=== PATIENT | male | born 1985 | race Caucasian/White ===

== ENCOUNTER 2018-10-04 07:54 | Emergency (ER) | payer MEDICAID ==
[~2018-10-04] VITALS: Ht 182.9 cm; Wt 68.4 kg
[~2018-10-04 07:54] MED LIST: OMEP10CA4 PO; UMEC1DIS INH
[2018-10-04 08:21] VITALS: BP 109/72
--- NOTE | 2018-10-04 08:44 | NUR ---
PT AMBULATORY TO ROOM 5 W/ C/O LICE THAT STARTED 1 MONTH AGO. PT STATES HE TREATED LICE BY THROWING AWAY HIS CLOTHES AND BATHING. STATES HE SCRATCHED AT POSS BUG BITES TO BILAT SHOULDERS W/ DIRTY FINGERS AND NOW STATES IT'S INFECTED. "SOME DAYS IT GETS BETTER SOME DAYS IT GETS WORSE". PT STATES HE HAS BEEN TRYING TO TAKE CARE OF IT HIMSELF BUT FEELS HE NEEDS MEDICAL ATTENTION NOW. PT RESTING ON GURLEXI. NADN. WARM BLANKET PROVIDED.
== END 2018-10-04 09:34 | disposition home or self-care (01) ==
LOC: ED 09:23
DX: L03.221 Cellulitis of neck (principal); L03.113 Cellulitis of right upper limb; L03.313 Cellulitis of chest wall; F17.210 Nicotine dependence, cigarettes, uncomplicated; Z72.9 Problem related to lifestyle, unspecified; Z75.9 Unspecified problem related to medical facilities and other health care; Z91.14 Patient's other noncompliance with medication regimen
CPT/HCPCS: 99283

== ENCOUNTER 2018-11-07 17:22 | Emergency (ER) | payer MEDICAID ==
[~2018-11-07] VITALS: Ht 182.9 cm; Wt 70.0 kg
--- NOTE | 2018-11-07 17:44 | NUR ---
Pt BIB EMS from [facility] for sz. Pt had 3x witnessed sz today and one several days ago. Pt states has hx of similar used to take dilantin 5+ years ago. Pt states he has been drinking a lot recently and has not had anything to drink today. Pt alert and oriented at this time. No oral trauma.
[2018-11-07 18:16] LABS: BASOPHILS # (AUTO) 0.02 x10^3/uL (0-0.1); BASOPHILS % (AUTO) 0 % (0-1); EOSINOPHILS # (AUTO) 0.01 x10^3/uL (0-0.4); EOSINOPHILS % (AUTO) 0 % (1-7); LYMPHOCYTES % (AUTO) 7 % (22-44); MD NO; MEAN CORPUSCULAR HEMOGLOBIN 34.3 pg (27.5-34.5); MEAN CORPUSCULAR HGB CONC 34.6 g/dL (33.2-36.2); MEAN CORPUSCULAR VOLUME 99.1 fL (81-97); MEAN PLATELET VOLUME 7.4 fL (7.4-10.4); MONOCYTES # (AUTO) 0.54 x10^3/uL (0.2-0.8); MONOCYTES % (AUTO) 8 % (2-9); NEUTROPHILS % (AUTO) 85 % (42-75); PLATELET COUNT 119 x10^3/uL (130-400); RED BLOOD COUNT 3.89 x10^6/uL (4.38-5.82); RED CELL DISTRIBUTION WIDTH 15.2 % (9.4-14.8)
[2018-11-07 18:22] LABS: ALANINE AMINOTRANSFERASE 156 U/L (12-78); ALBUMIN 3.7 g/dL (3.4-5.0); ANION GAP 7 mmol/L (5-15); CALCIUM 8.6 mg/dL (8.5-10.1); CHLORIDE 99 mmol/L (98-107)
[2018-11-07 18:25] LABS: ALKALINE PHOSPHATASE 98 U/L (45-117); BILIRUBIN,TOTAL 0.7 mg/dL (0.2-1.0); TOTAL PROTEIN 8.6 g/dL (6.4-8.2)
[2018-11-07 19:01] LABS: AMPHETAMINE SCREEN, URINE Negative (Negative); BARBITURATE SCREEN, URINE Negative (Negative); BENZODIAZEPINE SCREEN, URINE Negative (Negative); CANNABINOID SCREEN, URINE Positive (Negative); COCAINE SCREEN, URINE Negative (Negative); METHADONE SCREEN, URINE Negative (Negative); OPIATE SCREEN, URINE Negative (Negative)
[2018-11-07] MEDS ORDERED: LORazepam 1MG TABLET ONE (19:27)
[2018-11-07 19:29] VITALS: BP 130/87
[2018-11-07] MEDS ORDERED: LORazepam 1MG TABLET PO ONE (19:30)
== END 2018-11-07 19:46 | disposition home or self-care (01) ==
LOC: ED 19:30
DX: F10.239 Alcohol dependence with withdrawal, unspecified (principal); R56.9 Unspecified convulsions
CPT/HCPCS: 36415; 80053; 80307; 85025; 93005; 99284

== ENCOUNTER 2019-06-22 10:25 | Emergency (ER) | payer MEDICAID ==
[~2019-06-22] VITALS: Ht 182.9 cm; Wt 63.9 kg
[~2019-06-22 10:25] MED LIST changes: -OMEP10CA4 PO; +OMEP10CA5 PO
--- NOTE | 2019-06-22 11:11 | NUR ---
PT REPORTS HAVING A SEIZURE TODAY, WITNESSED BY SIG OTHER LASTING 40 SEC. PT DID NOT SUSTAIN INJURY OR LOOSE BOWEL/BLADDER CONTROL. PT WITH HX ETOH ABUSE ERMD IN TO EVAL PT, ORDERS RECIEVED. PLAN TO OBTAIN LABS AND D/C HOME ON LIBRIUM
[2019-06-22] MEDS ORDERED: LORazepam 1MG TABLET ONE (11:14)
[2019-06-22] MEDS ORDERED: THIAMINE 100MG TABLET PO ONE (11:30)
[2019-06-22] MEDS ORDERED: LORazepam 1MG TABLET PO ONE (11:30)
[2019-06-22 11:53] LABS: BASOPHILS # (AUTO) 0.05 x10^3/uL (0-0.1); BASOPHILS % (AUTO) 1 % (0-1); EOSINOPHILS # (AUTO) 0.04 x10^3/uL (0-0.4); EOSINOPHILS % (AUTO) 1 % (1-7); LYMPHOCYTES # (AUTO) 0.79 x10^3/uL (1-3.4); LYMPHOCYTES % (AUTO) 16 % (22-44); MD NO; MEAN CORPUSCULAR HEMOGLOBIN 34.5 pg (27.5-34.5); MEAN CORPUSCULAR HGB CONC 33.7 g/dL (33.2-36.2); MEAN CORPUSCULAR VOLUME 102.1 fL (81-97); MEAN PLATELET VOLUME 7.1 fL (7.4-10.4); MONOCYTES % (AUTO) 12 % (2-9); NEUTROPHILS # (AUTO) 3.59 x10^3/uL (1.8-6.8); NEUTROPHILS % (AUTO) 71 % (42-75); PLATELET COUNT 132 x10^3/uL (130-400); RED CELL DISTRIBUTION WIDTH 16.9 % (9.4-14.8)
[2019-06-22 12:04] LABS: ANION GAP 6 mmol/L (5-15); CALCIUM 8.9 mg/dL (8.5-10.1); CHLORIDE 97 mmol/L (98-107); CREATININE 0.61 mg/dL (0.7-1.3)
[2019-06-22 12:05] LABS: ALANINE AMINOTRANSFERASE 143 U/L (12-78); ALBUMIN 3.6 g/dL (3.4-5.0)
[2019-06-22 12:12] LABS: ALKALINE PHOSPHATASE 147 U/L (45-117); BILIRUBIN,TOTAL 0.7 mg/dL (0.2-1.0); TOTAL PROTEIN 8.4 g/dL (6.4-8.2)
[2019-06-22 12:20] VITALS: BP 134/72
--- NOTE | 2019-06-22 12:20 | NUR ---
LAB RESULTS BACK, PT PLACED FOR RECHECK
== END 2019-06-22 12:47 | disposition home or self-care (01) ==
LOC: ED 12:35
DX: R56.9 Unspecified convulsions (principal); F10.239 Alcohol dependence with withdrawal, unspecified; Y90.0 Blood alcohol level of less than 20 mg/100 ml; F17.200 Nicotine dependence, unspecified, uncomplicated
CPT/HCPCS: 36415; 80053; 80307; 85025; 93005; 99284

== ENCOUNTER 2019-09-23 10:47 | Emergency (ER) | payer MEDICAID ==
[~2019-09-23] VITALS: Ht 182.9 cm; Wt 70.0 kg
--- NOTE | 2019-09-23 10:52 | NUR ---
BIB EMS FOR FALL AND ETOH. SMALL LACERATION TO BACK OF HEAD. SAADIA LOC.
--- NOTE | 2019-09-23 11:48 | NUR ---
PT TO CT
[2019-09-23] MEDS ORDERED: LIDOCAINE-MPF 1%, 5ML ONE (13:34)
[2019-09-23] MEDS ORDERED: ACETAMINOPHEN 500 MG TABLET ONE (13:34)
[2019-09-23] MEDS ORDERED: OXYcodone IR 5MG TABLET PO STA (13:45)
[2019-09-23] MEDS ORDERED: OXYcodone IR 5MG TABLET ONE (13:50)
--- NOTE | 2019-09-23 13:53 | NUR ---
WOUND CLEANED W NS. STAPLED BY PROVIDER. PT TOLERATED PROCEDURE. MEDICATED PER ORDERS. WILL DC SOON .
[2019-09-23 14:17] VITALS: BP 123/78
--- NOTE | 2019-09-23 14:19 | NUR ---
DPatient/Caregiver given discharge instructions and they have confirmed that they understand the instructions. Patient ambulatory with steady gait.
== END 2019-09-23 14:21 | disposition home or self-care (01) ==
LOC: ED 14:15
DX: S01.01XA Laceration without foreign body of scalp, initial encounter (principal); M54.2 Cervicalgia; Y08.89XA Assault by other specified means, initial encounter; Y93.89 Activity, other specified; Y92.488 Other paved roadways as the place of occurrence of the external cause; Y99.8 Other external cause status
CPT/HCPCS: 12031; 70450; 72125; 99285

== ENCOUNTER 2019-09-28 15:23 | Emergency (ER) | payer MEDICAID ==
[~2019-09-28] VITALS: Ht 182.9 cm; Wt 67.6 kg
[2019-09-28 15:51] VITALS: BP 128/85
--- NOTE | 2019-09-28 15:56 | NUR ---
ABISAI REMOVED IN TRAIGE.
== END 2019-09-28 15:59 | disposition home or self-care (01) ==
LOC: ED 15:53
DX: S01.91XD Laceration without foreign body of unspecified part of head, subsequent encounter (principal); X58.XXXD Exposure to other specified factors, subsequent encounter; Z48.02 Encounter for removal of sutures
CPT/HCPCS: 99281

== ENCOUNTER 2020-01-05 09:40 | Emergency (ER) | payer MEDICAID ==
[~2020-01-05] VITALS: Ht 182.9 cm; Wt 70.0 kg
--- NOTE | 2020-01-05 10:19 | NUR ---
pt mental status improving. disoriented to date. answers questions approp. full sentences. pupils R 5 mm, L 4 mm, constrict to light. tracks. OLSON 5/5 strength. denies dizziness. lg hematoma R side. plan for ct. explained npo status for now. denies neck/back pain. collar in place by ems. lungs ctab. sts was previously on sz meds. drinks "a lot" of beer qday depending on money. seizure precs in place. call gonzalez in reach. tyree zabala was in for eval. pt calm, cooperative, unkempt. as
[2020-01-05 10:30] LABS: ALBUMIN 4.1 g/dL (3.4-5.0); ANION GAP 11 mmol/L (5-15); CALCIUM 8.6 mg/dL (8.5-10.1); CHLORIDE 95 mmol/L (98-107)
[2020-01-05] MEDS ORDERED: LORazepam 2 MG/ML, 1ML ONE ×2 (10:36→11:48)
[2020-01-05] MEDS: LORazepam 2 MG/ML, 1ML IVPush PRN ×3 (10:39→11:58)
[2020-01-05 10:45] LABS: ALANINE AMINOTRANSFERASE 184 U/L (12-78); ALKALINE PHOSPHATASE 90 U/L (45-117); BASOPHILS # (AUTO) 0.01 x10^3/uL (0-0.1); BASOPHILS % (AUTO) 0 % (0-1); CREATININE 0.74 mg/dL (0.7-1.3); EOSINOPHILS # (AUTO) 0.01 x10^3/uL (0-0.4); EOSINOPHILS % (AUTO) 0 % (1-7); LYMPHOCYTES # (AUTO) 0.24 x10^3/uL (1-3.4); LYMPHOCYTES % (AUTO) 4 % (22-44); MD SCAN; MEAN CORPUSCULAR HGB CONC 34.1 g/dL (33.2-36.2); MEAN CORPUSCULAR VOLUME 102.6 fL (81-97); MEAN PLATELET VOLUME 7.3 fL (7.4-10.4); MONOCYTES # (AUTO) 0.28 x10^3/uL (0.2-0.8); MONOCYTES % (AUTO) 5 % (2-9); NEUTROPHILS # (AUTO) 4.98 x10^3/uL (1.8-6.8); NEUTROPHILS % (AUTO) 90 % (42-75); PLATELET COUNT 95 x10^3/uL (130-400); RED BLOOD COUNT 4.12 x10^6/uL (4.38-5.82); RED CELL DISTRIBUTION WIDTH 16.2 % (9.4-14.8); TOTAL PROTEIN 8.2 g/dL (6.4-8.2)
--- NOTE | 2020-01-05 11:11 | NUR ---
back from ct. ativan prior to ct. pt got up, voided on bed, asking for water. helped back to bed. calm now. awaiting ct. as
--- NOTE | 2020-01-05 11:26 | NUR ---
LEFT ANTEROLATERAL TEMPORAL LOBE HEMORRHAGIC CONTUSION 1.5 CM IN DIAMETER CONSISTENT WITH A CONTRECOUP INJURY. NO INTRACRANIAL MASS EFFECT. RIGHT POSTERIOR SCALP HEMATOMA. NO SKULL FRACTURE. MILD CHRONIC MAXILLARY SINUSITIS.
--- NOTE | 2020-01-05 12:06 | NUR ---
additional ativan. water per pa. c collar removed per pa. neuros intact. no lac, just scalp abrasion. as
[2020-01-05] MEDS ORDERED: CHLORDIAZEPOXIDE 25 MG CAPSULE PO ONE (12:30)
[2020-01-05] MEDS ORDERED: CHLORDIAZEPOXIDE 25 MG CAPSULE ONE (12:42)
[2020-01-05 12:53] VITALS: BP 138/90
== END 2020-01-05 13:16 | disposition home or self-care (01) ==
LOC: ED 12:29
DX: S00.03XA Contusion of scalp, initial encounter (principal); S09.90XA Unspecified injury of head, initial encounter; R56.9 Unspecified convulsions; M54.2 Cervicalgia; W18.00XA Striking against unspecified object with subsequent fall, initial encounter; Y93.89 Activity, other specified; Y92.89 Other specified places as the place of occurrence of the external cause; Y99.8 Other external cause status
CPT/HCPCS: 36415; 70450; 72125; 80053; 80307; 85025; 96374; 96376; 99285; J2060

== ENCOUNTER 2020-01-09 13:20 | Inpatient (IN) | payer MEDICAID ==
[~2020-01-09] VITALS: Ht 182.9 cm; Wt 66.9 kg
--- NOTE | 2020-01-09 14:00 | NUR ---
ASSUMED CARE OF PT AT THIS TIME. PT BIB [facility] DEPUTIES FOR HALLUCINATING WHILE IN CARE HOME AND INABILITY TO CARE FOR SELF. PT ON LEGAL HOLD. PT DENIES SI/HI. PT REPORTS FALLING BY TRIPPING PRIOR TO GOING TO CARE HOME WITH BRUISE AROUND RIGHT EYE AND LEFT WRIST PAIN. PT HAS BEEN IN CARE HOME FOR LAST 3 DAYS PER PT.
[2020-01-09 14:07] LABS: BASOPHILS # (AUTO) 0.02 x10^3/uL (0-0.1); BASOPHILS % (AUTO) 0 % (0-1); EOSINOPHILS # (AUTO) 0.09 x10^3/uL (0-0.4); EOSINOPHILS % (AUTO) 2 % (1-7); LYMPHOCYTES # (AUTO) 0.86 x10^3/uL (1-3.4); LYMPHOCYTES % (AUTO) 19 % (22-44); MD NO; MEAN CORPUSCULAR HEMOGLOBIN 35.1 pg (27.5-34.5); MEAN CORPUSCULAR VOLUME 103.3 fL (81-97); MEAN PLATELET VOLUME 7.7 fL (7.4-10.4); MONOCYTES # (AUTO) 0.68 x10^3/uL (0.2-0.8); MONOCYTES % (AUTO) 15 % (2-9); NEUTROPHILS # (AUTO) 2.87 x10^3/uL (1.8-6.8); NEUTROPHILS % (AUTO) 64 % (42-75); PLATELET COUNT 151 x10^3/uL (130-400); RED BLOOD COUNT 3.68 x10^6/uL (4.38-5.82); RED CELL DISTRIBUTION WIDTH 16.3 % (9.4-14.8)
[2020-01-09 14:15] LABS: ALBUMIN 4.4 g/dL (3.4-5.0); ANION GAP 7 mmol/L (5-15); CALCIUM 9.2 mg/dL (8.5-10.1); CHLORIDE 103 mmol/L (98-107); CREATININE 0.74 mg/dL (0.7-1.3)
[2020-01-09 14:25] LABS: SALICYLATE LEVEL < 1.7 mg/dL (2.8-20.0)
--- NOTE | 2020-01-09 14:32 | NUR ---
[employer] AT BEDSIDE.
[2020-01-09] MEDS: QUETIAPINE 25MG TABLET PO SCH ×2 (15:00→15:54)
--- NOTE | 2020-01-09 15:18 | NUR ---
PT AMBULATED TO BATHROOM FOR UA SITTER PRESENT
[2020-01-09 15:44] LABS: AMPHETAMINE SCREEN, URINE Negative (Negative); BARBITURATE SCREEN, URINE Negative (Negative); BENZODIAZEPINE SCREEN, URINE Positive (Negative); CANNABINOID SCREEN, URINE Positive (Negative); COCAINE SCREEN, URINE Negative (Negative); METHADONE SCREEN, URINE Negative (Negative); OPIATE SCREEN, URINE Negative (Negative)
[2020-01-09] MEDS ORDERED: QUETIAPINE 25MG TABLET ONE (15:53)
[2020-01-09] MEDS ORDERED: SODIUM CHLORIDE FLUSH 10ML SYR IVF ONE (16:00)
--- NOTE | 2020-01-09 16:12 | NUR ---
VINCENT HORNE, PT OK TO HAVE PEN AND PAPER TO JOURNAL THOUGHTS PER PROVIDER NOTES.
[2020-01-09] MEDS ORDERED: LEVETIRACETAM 1,500 MG in SODIUM CHLORIDE 0.9% 100 ML IV ONE (16:15)
--- NOTE | 2020-01-09 16:15 | NUR ---
FULL STACK DEVELOPER APPLIED, VSS. NEURO INTACT. PT HAVING HALLUCINATIONS
[2020-01-09] MEDS ORDERED: LEVETIRACETAM 500 MG TABLET ONE (16:30)
[2020-01-09] MEDS ORDERED: SODIUM CHLORIDE FLUSH 10ML SYR IVF PRN (17:00)
--- NOTE | 2020-01-09 17:31 | NUR ---
REPORT TO JANE
[2020-01-09 18:29] VITALS: BP 120/77
[2020-01-09 18:43] VITALS: BP 120/77
[2020-01-09] MEDS ORDERED: ONDANSETRON ODT 4 MG PO PRN (19:00)
[2020-01-09] MEDS ORDERED: POLYETHYLENE GLYCOL 17 GM PACKET PO PRN (19:00)
[2020-01-09] MEDS ORDERED: BISACODYL 10 MG SUPP PR PRN (19:00)
[2020-01-09 19:10] VITALS: BP 120/77
[2020-01-09 20:11] VITALS: BP 105/73
[2020-01-09] MEDS: LEVETIRACETAM 500 MG TABLET PO SCH (20:15)
[2020-01-09] MEDS: NICOTINE 14MG/24 HR PATCH.TD24 TD SCH (20:15)
[2020-01-09] MEDS: SODIUM CHLORIDE FLUSH 10ML SYR IVF SCH (20:15)
[2020-01-09 22:00] VITALS: BP 118/77
[2020-01-09] MEDS ORDERED: ALBUTEROL SULFATE 2.5 MG/3 ML NPPB PRN (22:30)
[2020-01-09 23:49] VITALS: BP 119/77
[2020-01-10] VITALS (8 sets, daily range): BP systolic 104–117; BP diastolic 65–80
[2020-01-10] MEDS: OMEPRAZOLE 10 MG CAPSULE.DR PO SCH (06:07)
[2020-01-10 06:16] LABS: BASOPHILS # (AUTO) 0.04 x10^3/uL (0-0.1); BASOPHILS % (AUTO) 1 % (0-1); EOSINOPHILS # (AUTO) 0.24 x10^3/uL (0-0.4); EOSINOPHILS % (AUTO) 6 % (1-7); LYMPHOCYTES # (AUTO) 1.17 x10^3/uL (1-3.4); LYMPHOCYTES % (AUTO) 28 % (22-44); MD NO; MEAN CORPUSCULAR HEMOGLOBIN 34.6 pg (27.5-34.5); MEAN CORPUSCULAR HGB CONC 33.2 g/dL (33.2-36.2); MEAN CORPUSCULAR VOLUME 104.2 fL (81-97); MEAN PLATELET VOLUME 8.1 fL (7.4-10.4); MONOCYTES # (AUTO) 0.65 x10^3/uL (0.2-0.8); MONOCYTES % (AUTO) 16 % (2-9); NEUTROPHILS # (AUTO) 2.07 x10^3/uL (1.8-6.8); NEUTROPHILS % (AUTO) 50 % (42-75); PLATELET COUNT 154 x10^3/uL (130-400); RED BLOOD COUNT 3.49 x10^6/uL (4.38-5.82); RED CELL DISTRIBUTION WIDTH 15.9 % (9.4-14.8)
[2020-01-10 06:26] LABS: CHLORIDE 105 mmol/L (98-107)
[2020-01-10 06:32] LABS: ANION GAP 8 mmol/L (5-15); CALCIUM 8.9 mg/dL (8.5-10.1); CREATININE 0.64 mg/dL (0.7-1.3)
[2020-01-10] MEDS: SENNA/DOCUSATE TABLET PO SCH (09:00)
[2020-01-10] MEDS: SODIUM CHLORIDE FLUSH 10ML SYR IVF SCH ×2 (09:00→20:50)
[2020-01-10] MEDS: LEVETIRACETAM 500 MG TABLET PO SCH ×2 (09:09→20:50)
[2020-01-10] MEDS ORDERED: POTASSIUM CHLORIDE 20 MEQ TAB.ER.PRT PO ONE (12:00)
[2020-01-10] MEDS: NICOTINE 14MG/24 HR PATCH.TD24 TD SCH (18:56)
[2020-01-11 00:01] VITALS: BP 108/69
[2020-01-11 05:37] LABS: BASOPHILS # (AUTO) 0.05 x10^3/uL (0-0.1); BASOPHILS % (AUTO) 1 % (0-1); EOSINOPHILS # (AUTO) 0.38 x10^3/uL (0-0.4); EOSINOPHILS % (AUTO) 6 % (1-7); LYMPHOCYTES # (AUTO) 1.34 x10^3/uL (1-3.4); LYMPHOCYTES % (AUTO) 22 % (22-44); MD NO; MEAN CORPUSCULAR HEMOGLOBIN 34.8 pg (27.5-34.5); MEAN CORPUSCULAR HGB CONC 33.1 g/dL (33.2-36.2); MEAN PLATELET VOLUME 7.6 fL (7.4-10.4); MONOCYTES # (AUTO) 1.04 x10^3/uL (0.2-0.8); MONOCYTES % (AUTO) 17 % (2-9); NEUTROPHILS # (AUTO) 3.17 x10^3/uL (1.8-6.8); NEUTROPHILS % (AUTO) 53 % (42-75); PLATELET COUNT 182 x10^3/uL (130-400); RED BLOOD COUNT 3.54 x10^6/uL (4.38-5.82)
[2020-01-11 05:48] LABS: ANION GAP 8 mmol/L (5-15); CALCIUM 8.9 mg/dL (8.5-10.1); CHLORIDE 106 mmol/L (98-107); CREATININE 0.59 mg/dL (0.7-1.3)
[2020-01-11] MEDS: OMEPRAZOLE 10 MG CAPSULE.DR PO SCH (06:16)
[2020-01-11 06:40] VITALS: BP 111/73
[2020-01-11] MEDS: LEVETIRACETAM 500 MG TABLET PO SCH ×2 (08:30→20:20)
[2020-01-11] MEDS: SENNA/DOCUSATE TABLET PO SCH (08:30)
[2020-01-11] MEDS: SODIUM CHLORIDE FLUSH 10ML SYR IVF SCH ×2 (09:00→20:21)
[2020-01-11 14:39] VITALS: BP 113/66
[2020-01-11 19:56] VITALS: BP 102/69
[2020-01-11] MEDS: NICOTINE 14MG/24 HR PATCH.TD24 TD SCH (20:21)
[2020-01-12 01:23] VITALS: BP 107/72
[2020-01-12 06:20] VITALS: BP 111/71
[2020-01-12] MEDS: OMEPRAZOLE 10 MG CAPSULE.DR PO SCH (08:45)
[2020-01-12] MEDS: SODIUM CHLORIDE FLUSH 10ML SYR IVF SCH (08:45)
[2020-01-12] MEDS: SENNA/DOCUSATE TABLET PO SCH (08:45)
[2020-01-12] MEDS: LEVETIRACETAM 500 MG TABLET PO SCH (08:46)
[2020-01-12 12:17] VITALS: BP 115/73
[2020-01-12] MEDS ORDERED: LEVE500T53 PO (13:04)
== END 2020-01-12 14:30 | disposition home or self-care (01) | DRG 70 ==
LOC: ED 13:56 → EDIP 16:49 → 4WST 18:22 → DCLOUNGE 01-12 14:17
PROVIDERS: ADMIT Family Medicine; ATTEND Family Medicine
DX: G93.40 Encephalopathy, unspecified (principal); S06.320A Contusion and laceration of left cerebrum without loss of consciousness, initial encounter; F07.81 Postconcussional syndrome; D53.9 Nutritional anemia, unspecified; F17.210 Nicotine dependence, cigarettes, uncomplicated; F32.9 Major depressive disorder, single episode, unspecified; F41.9 Anxiety disorder, unspecified; G40.909 Epilepsy, unspecified, not intractable, without status epilepticus; J45.909 Unspecified asthma, uncomplicated; K70.9 Alcoholic liver disease, unspecified; Z79.899 Other long term (current) drug therapy; Z81.8 Family history of other mental and behavioral disorders; Z59.0 Homelessness; Z88.8 Allergy status to other drugs, medicaments and biological substances; W18.39XA Other fall on same level, initial encounter; Y93.89 Activity, other specified; Y92.89 Other specified places as the place of occurrence of the external cause; Y99.8 Other external cause status; F22 Delusional disorders
CPT/HCPCS: 36415; 70450; 80048; 80307; 82040; 82140; 82607; 84443; 85025; 96374; 99285; G0378; J1953

== ENCOUNTER 2020-01-21 19:39 | Emergency (ER) | payer MEDICAID ==
[~2020-01-21] VITALS: Ht 182.9 cm; Wt 70.0 kg
[~2020-01-21 19:39] MED LIST changes: +LEVE500T53 PO
[2020-01-21 19:47] VITALS: BP 116/88
== END 2020-01-21 21:51 | disposition home or self-care (01) ==
LOC: ED 21:15
DX: S00.81XA Abrasion of other part of head, initial encounter (principal); F10.10 Alcohol abuse, uncomplicated; R04.0 Epistaxis; F17.200 Nicotine dependence, unspecified, uncomplicated; Z72.9 Problem related to lifestyle, unspecified; Z59.0 Homelessness; Y08.89XA Assault by other specified means, initial encounter; Y93.89 Activity, other specified; Y92.488 Other paved roadways as the place of occurrence of the external cause; Y99.8 Other external cause status; Y90.9 Presence of alcohol in blood, level not specified
CPT/HCPCS: 70450; 70486; 99285

== ENCOUNTER 2020-02-05 09:10 | Emergency (ER) | payer MEDICAID ==
[~2020-02-05] VITALS: Ht 182.9 cm; Wt 64.8 kg
[2020-02-05 10:18] LABS: ALANINE AMINOTRANSFERASE 59 U/L (12-78); ALBUMIN 3.6 g/dL (3.4-5.0); ANION GAP 8 mmol/L (5-15); CHLORIDE 103 mmol/L (98-107); CREATININE 0.52 mg/dL (0.7-1.3)
[2020-02-05 10:20] LABS: ALKALINE PHOSPHATASE 87 U/L (45-117); BILIRUBIN,TOTAL 0.5 mg/dL (0.2-1.0); TOTAL PROTEIN 7.8 g/dL (6.4-8.2)
--- NOTE | 2020-02-05 10:42 | NUR ---
PT REPORTING PAIN IN FACE, STATED HE FELL ON HIS FACE AT 0430 THIS AM.
--- NOTE | 2020-02-05 10:44 | NUR ---
PT REPORSITIONED IN BED FOR COMFORT. VITALS MONITORS IN PLACE. PT RESTING CALMLY IN GURNEY, BILAT BEDRAILS UP FOR SAFETY.
--- NOTE | 2020-02-05 10:45 | NUR ---
ERP AWARE OF PT REPORT OF FACIAL PAIN
[2020-02-05 11:22] LABS: BASOPHILS # (AUTO) 0.02 x10^3/uL (0-0.1); BASOPHILS % (AUTO) 0 % (0-1); EOSINOPHILS # (AUTO) 0.16 x10^3/uL (0-0.4); EOSINOPHILS % (AUTO) 3 % (1-7); LYMPHOCYTES # (AUTO) 1.32 x10^3/uL (1-3.4); LYMPHOCYTES % (AUTO) 29 % (22-44); MD SCAN; MEAN CORPUSCULAR HEMOGLOBIN 34.8 pg (27.5-34.5); MEAN CORPUSCULAR VOLUME 102.5 fL (81-97); MEAN PLATELET VOLUME 7.3 fL (7.4-10.4); MONOCYTES # (AUTO) 0.42 x10^3/uL (0.2-0.8); MONOCYTES % (AUTO) 9 % (2-9); NEUTROPHILS # (AUTO) 2.69 x10^3/uL (1.8-6.8); NEUTROPHILS % (AUTO) 58 % (42-75); PLATELET COUNT 69 x10^3/uL (130-400); RED BLOOD COUNT 3.99 x10^6/uL (4.38-5.82); RED CELL DISTRIBUTION WIDTH 15.3 % (9.4-14.8)
--- NOTE | 2020-02-05 11:50 | NUR ---
PT REPOSITIONED IN BED O2 SAT 89% ON RA. PT NOW SATING 91 AFTER BEING SAT UP.
--- NOTE | 2020-02-05 12:21 | NUR ---
REPORT RC'VD FROM CORINA FIORE. PT RESTING IN GURNEY, BREATHING & VS WNL. PER ER PA, PT DOES NOT NEED FACIAL CT. WILL SEE IF PT CAN AMBULATED AND DISCHARGE WHEN ABLE.
--- NOTE | 2020-02-05 12:35 | NUR ---
ICE WATER PROVIDED TO PT. PT STATES, "I CAN'T GET UP YET. I DON'T FEEL RIGHT."
--- NOTE | 2020-02-05 13:16 | NUR ---
PT REQUESTED FOOD; TRAY ORDERED.
--- NOTE | 2020-02-05 13:37 | NUR ---
REPORTED TO PAPI FIORE.
[2020-02-05 14:54] VITALS: BP 123/77
== END 2020-02-05 14:55 | disposition home or self-care (01) ==
LOC: ED 09:42
DX: F10.229 Alcohol dependence with intoxication, unspecified (principal); Z59.0 Homelessness; Y90.9 Presence of alcohol in blood, level not specified
CPT/HCPCS: 36415; 80053; 80307; 85025; 99285